=== PATIENT | female | born 1945 | race African-American/Black ===

== ENCOUNTER 2017-06-11 09:15 | Emergency (ER) | payer BC ==
[~2017-06-11] VITALS: Ht 165.1 cm; Wt 68.0 kg
[2017-06-11 09:21] VITALS: BP 114/65
[2017-06-11] MEDS ORDERED: METOPROLOL TART50 M1 ORAL (09:30)
[2017-06-11] MEDS ORDERED: CREON DR 12,001 EACH PO (09:30)
[2017-06-11] MEDS ORDERED: SYNTHROID75 MCG ORAL (09:30)
[2017-06-11] MEDS ORDERED: TYLENOL EXTRA500 MG ORAL (10:55)
--- NOTE | 2017-06-11 11:14 | Diagnostic Imaging Report ---
Indication: Pain 3 views of the left knee were obtained. Findings: No acute fracture, malalignment, or joint effusion are identified. Joint space is relatively well-maintained. No definite fracture is identified. Bones are osteopenic. Impression: Negative for acute injury
[2017-06-11 11:15] VITALS: BP 135/77
--- NOTE | 2017-06-11 11:31 | Emergency Room Report ---
History of Present Illness General Chief Complaint: Pain Source: Patient Present Illness HPI 71-year-old female presents ED complaining of left knee pain and swelling. Started 2 days ago suddenly. Denies trauma to knee. States that she feels "bones grinding". Pain as throbbing, 8/10, nonradiating. Patient states she's been resting the knee and putting heat with some improvement. No aggravating relieving factors. Denies any other associated symptoms Allergies: Coded Allergies: DROPERIDOL (Verified Allergy, Severe, 06/11/17) TONGUE SWELLING, CAUGHT EARLY Patient History Past Medical History: none Past Surgical History: none Pertinent Family History: none Social History: Denies: smoking, alcohol use, drug use Last Menstrual Period: Hysterectomy. Now: No Immunizations: UTD Reviewed Nursing Documentation: PMH: Agreed, PSxH: Agreed Review of Systems All Other Systems: negative except mentioned in HPI Physical Exam Vital Signs Date Time Temp Pulse Resp B/P (MAP) Pulse Ox O2 Delivery O2 Flow Rate FiO2 06/11/17 09:21 98.2 61 16 114/65 98 Room Air Sp02 EP Interpretation: reviewed, normal General Appearance: no apparent distress, alert, GCS 15, non-toxic Head: normocephalic Eyes: bilateral eye normal inspection, bilateral eye PERRL ENT: normal ENT inspection Neck: normal inspection Respiratory: normal inspection Cardiovascular #1: normal inspection Gastrointestinal: normal inspection Rectal: deferred Genitourinary: no CVA tenderness Musculoskeletal: normal range of motion, swelling - L knee Neurologic: alert, oriented x3, responsive, motor strength/tone normal, sensory intact, speech normal Psychiatric: normal inspection Skin: normal inspection Lymphatic: normal inspection Procedures Splinting Splinting : Consent: Verbal Pre-Made Type: BRITTANY wrap - L knee Pre-Proc Neuro Vasc Exam: normal Post-Proc Neuro Vasc Exam: normal Patient Tolerated: Well Complications: None Medical Decision Making Diagnostic Impression: Primary Impression: Knee pain Qualified Codes: M25.562 - Pain in left knee ER Course Hospital Course 71-year-old female presents ED complaining of left knee pain and swelling Differential diagnoses include: Fracture, dislocation, sprain, contusion Clinical course Patient placed on stretcher. After initial history, physical exam reveals an elderly female in no acute distress. On exam there is some minimal swelling to the left knee compared to the right knee. However there is full range of motion. No erythema or induration. No joint laxity. I ordered x-rays of left knee Xrays prelim read shows no acute fracture/dislocation. placed in brittany wrap. recommend followup with Orthopedics Diagnosis - knee pain Stable and discharged to home with prescription for Tylenol. apply ice, keep elevated. weight bear as tolerated. Followup with ortho. Return to ED if symptoms recur or worsen Other X-Ray Diagnostic Results Other X-Ray Diagnostic Results : X-Ray ordered: L knee # of Views/Limited Vs Complete: 3 View Indication: Pain EP Interpretation: Yes Interpretation: no dislocation, no soft tissue swelling, no fractures, nonspecific bowel gas Last Vital Signs Date Time Temp Pulse Resp B/P (MAP) Pulse Ox O2 Delivery O2 Flow Rate FiO2 06/11/17 11:15 98.2 57 16 135/77 95 Room Air Status: improved Disposition: HOME, SELF-CARE Condition: Stable Scripts Acetaminophen* (TYLENOL EXTRA STRENGTH*) 500 Mg Tablet 500 MG ORAL Q8H Y for Prn Headache/Temp > 101, #30 TAB 0 Refills Prov: CARLA GUTIÉRREZ M.D. 06/11/17 Referrals: [facility]REG[facility] PHYSICIAN (PCP) Patient Instructions: Arthritis, [id number] CARLA GUTIÉRREZ M.D. Jun 11, 2017 11:31
== END 2017-06-11 11:15 | disposition home or self-care (01) ==
LOC: EMR 09:49
DX: M25.562 Pain in left knee (principal); M79.89 Other specified soft tissue disorders
CPT/HCPCS: 99283